=== PATIENT | female | born 1985 | race Two or more races ===

== ENCOUNTER 2019-04-29 03:02 | Emergency (ER) | payer SELFPAY ==
[~2019-04-29] VITALS: Ht 157.5 cm; Wt 59.0 kg
[2019-04-29 03:10] VITALS: BP 164/65
--- NOTE | 2019-04-29 03:53 | NUR ---
PT MEDICALLY CLEARED FOR DISCHARGED. ABLE TO AMBULATE WITH STEADY GAIT. PT INSTRCUTED NOT TO DRIVE, PT WAS PICKED UP BY FRIEND. Patient discharged to home in stable condition. Written and verbal after care instructions given. Patient verbalizes understanding of instruction.
== END 2019-04-29 03:55 | disposition home or self-care (01) ==
LOC: ER 03:02
DX: F10.129 Alcohol abuse with intoxication, unspecified (principal); Y90.9 Presence of alcohol in blood, level not specified